=== PATIENT | male | born 1960 | race Caucasian/White ===

== ENCOUNTER 2020-01-13 11:56 | Inpatient (IN) ==
[2020-01-13 13:03] LABS: ABS Lymphocytes 1.1 10^3/ul (1.0-4.8); ABS Monocytes 0.4 10^3/ul (0-0.8); Eosinophil % 0.2 %; Hematocrit 42 % (42-52); Hemoglobin 14.5 g/dL (14.0-18.0); Lymphocyte % 18.6 %; Mean Corpuscular HGB Conc 35 g/dL (31-36); Mean Corpuscular Hemoglobin 31 pg (27-31); Mean Corpuscular Volume 90 fL (80-94); Mean Platelet Volume 7.6 fL (7.4-10.4); Nucleated Red Blood Cells % 0.1; Platelet Count 274 10^3/uL (150-450); Red Blood Count 4.65 10^6 /uL (4.18-5.48); Red Cell Distribution Width 13 % (10-15)
[2020-01-13 13:13] LABS: Activated Partial Thrombo Time 40.8 seconds (26.0-38.0); INR 1.31 (0.82-1.09)
[2020-01-13 13:22] LABS: Albumin 3.9 g/dL (3.2-5.2); Albumin/Globulin Ratio 1.5 (1-3); BUN/Creatinine Ratio 19.3 (8-20); Calcium 9.1 mg/dL (8.6-10.3); EGFR African American 107.3 (>60); EGFR Non-African American 88.6 (>60); Globulin 2.6 g/dL (2-4); Potassium 3.6 mmol/L (3.5-5.0); Total Bilirubin 0.4 mg/dL (0.2-1.0); Total Protein 6.5 g/dL (6.4-8.9)
[2020-01-13 14:44] LABS: Magnesium 1.9 mg/dL (1.9-2.7)
[2020-01-13] MEDS ORDERED: Iodixanol (CONTRAST) 320 MG/ML 100 ML SDV IV ONE (14:55)
[2020-01-13 15:01] LABS: TSH (Thyroid Stimulating Horm) 1.27 mcIU/mL (0.34-5.60)
[2020-01-13] MEDS ORDERED: NS 0.9% 1000 ml BAG 1,000 ML IV ONE ×3 (16:22→21:00)
[2020-01-13] MEDS ORDERED: Dextrose 50% Syringe 50 ml 25 GM/50 ML SYRINGE IV PUSH PRN (17:50)
[2020-01-13] MEDS ORDERED: Al Hydrox/Mg Hydrox/Simet LIQ 30 ML UDC PO ONE (17:50)
[2020-01-13 18:28] LABS: HDL Cholesterol 48.3 mg/dL
[2020-01-13] MEDS: Mometasone/Formoter 100/5 MDI INH SCH (20:15)
[2020-01-13] MEDS: Albuterol 2.5mg/3 ml (0.083%) NEB.SOLN INH SCH (20:15)
[2020-01-13] MEDS ORDERED: Budesonide Flexhaler 180 (NF) 180 MCG/ACT MDI INH SCH (21:00)
[2020-01-13] MEDS: Insulin LISPRO 100 units/ml(*) SUBCUT SCH (22:29)
[2020-01-13] MEDS: NS 0.9% 1000 ml BAG 1,000 ML IV SCH (22:43)
[2020-01-13] MEDS: Pantoprazole VIAL 40 MG VIAL IV SCH (22:49)
[2020-01-13] MEDS: Nystatin TOP POWDER 15 GM BTL TOPICAL SCH (22:54)
[2020-01-14 07:08] LABS: BUN/Creatinine Ratio 26.3 (8-20); Calcium 8.5 mg/dL (8.6-10.3); EGFR African American 119.7 (>60); EGFR Non-African American 98.9 (>60); Potassium 3.9 mmol/L (3.5-5.0)
[2020-01-14 07:16] LABS: ABS Lymphocytes 1.2 10^3/ul (1.0-4.8); ABS Monocytes 0.4 10^3/ul (0-0.8); Eosinophil % 0.3 %; Hematocrit 41 % (42-52); Hemoglobin 13.9 g/dL (14.0-18.0); Lymphocyte % 22.9 %; Mean Corpuscular HGB Conc 34 g/dL (31-36); Mean Corpuscular Hemoglobin 31 pg (27-31); Mean Corpuscular Volume 91 fL (80-94); Mean Platelet Volume 7.5 fL (7.4-10.4); Nucleated Red Blood Cells % 0.1; Platelet Count 236 10^3/uL (150-450); Red Blood Count 4.51 10^6 /uL (4.18-5.48); Red Cell Distribution Width 13 % (10-15); White Blood Count 5.4 10^3/uL (3.5-10.8)
[2020-01-14] MEDS: Aspirin EC 81 mg TAB.EC (enteric coated) PO SCH (08:09)
[2020-01-14] MEDS ORDERED: Perflutren Lipid Microsphere 3 ML VIAL ONE (08:09)
[2020-01-14] MEDS: Pantoprazole VIAL 40 MG VIAL IV SCH ×2 (08:10→20:14)
[2020-01-14] MEDS ORDERED: Regadenoson 0.4 MG/5 ML SYRINGE ONE (08:10)
[2020-01-14] MEDS ORDERED: Aminophylline 25 MG/ML VIAL ONE (08:10)
[2020-01-14] MEDS: Mirabegron 50 mg TAB (NF) 50 MG TAB PO SCH (08:29)
[2020-01-14] MEDS: Insulin LISPRO 100 units/ml(*) SUBCUT SCH ×4 (08:29→21:40)
[2020-01-14] MEDS: Mometasone/Formoter 100/5 MDI INH SCH ×2 (08:35→19:13)
[2020-01-14] MEDS: Albuterol 2.5mg/3 ml (0.083%) NEB.SOLN INH SCH ×3 (08:35→19:13)
[2020-01-14] MEDS: SPIRIVA Respimat (tiotropium) 2.5 mcg/inh Inhaler INH SCH (08:35)
[2020-01-14] MEDS ORDERED: CMCS:Pravastatin 20 mg TAB (NF) PO SCH (09:00)
[2020-01-14] MEDS: Nystatin TOP POWDER 15 GM BTL TOPICAL SCH ×2 (12:10→21:58)
[2020-01-14] MEDS: Nicotine PATCH 7 MG/24 HR PATCH TRANSDERM SCH (12:10)
[2020-01-14 12:36] LABS: Folate 10.5 ng/mL (>3.99)
[2020-01-14] MEDS ORDERED: Cyanocobalamin INJ 1,000 MCG/ML VIAL 1 ML VIAL IM ONE (13:43)
[2020-01-14] MEDS ORDERED: Thiamine 100 MG/ML 2 ml VIAL 100 MG, Folic Acid 1 MG, Multiple Vitamin IV ADULT 10 ML i... IV ONE (13:44)
[2020-01-14] MEDS ORDERED: Potassium Chloride LIQUID 20 MEQ/15 ML LIQUID PO ONE (13:45)
[2020-01-14] MEDS: Digoxin IV 0.5 MG/2 ML AMP (0.25 MG/ML) IV SLOW PU SCH ×2 (15:13→20:13)
[2020-01-14] MEDS: NS 0.9% 1000 ml BAG 1,000 ML IV SCH (21:56)
[2020-01-15] MEDS: Digoxin IV 0.5 MG/2 ML AMP (0.25 MG/ML) IV SLOW PU SCH (00:36)
[2020-01-15 06:55] LABS: BUN/Creatinine Ratio 22.7 (8-20); Calcium 8.5 mg/dL (8.6-10.3); Digoxin 1.1 ng/ml (0.8-2.0); EGFR African American 149.5 (>60); EGFR Non-African American 123.5 (>60); Magnesium 1.8 mg/dL (1.9-2.7); Potassium 4.4 mmol/L (3.5-5.0)
[2020-01-15] MEDS: SPIRIVA Respimat (tiotropium) 2.5 mcg/inh Inhaler INH SCH (07:12)
[2020-01-15] MEDS: Albuterol 2.5mg/3 ml (0.083%) NEB.SOLN INH SCH (07:12)
[2020-01-15] MEDS: Mometasone/Formoter 100/5 MDI INH SCH ×2 (07:13→19:09)
[2020-01-15] MEDS: Insulin LISPRO 100 units/ml(*) SUBCUT SCH ×4 (08:01→16:10)
[2020-01-15] MEDS ORDERED: Albuterol 2.5mg/3 ml (0.083%) NEB.SOLN INH PRN (08:27)
[2020-01-15] MEDS: Aspirin EC 81 mg TAB.EC (enteric coated) PO SCH ×2 (09:13→10:38)
[2020-01-15] MEDS: Pantoprazole VIAL 40 MG VIAL IV SCH ×2 (09:13→10:38)
[2020-01-15] MEDS: Nystatin TOP POWDER 15 GM BTL TOPICAL SCH ×2 (09:14→21:55)
[2020-01-15] MEDS: CMCS:Pravastatin 20 mg TAB (NF) PO SCH ×2 (09:14→10:39)
[2020-01-15] MEDS: Nicotine PATCH 7 MG/24 HR PATCH TRANSDERM SCH ×2 (09:15→10:39)
[2020-01-15] MEDS: Mirabegron 50 mg TAB (NF) 50 MG TAB PO SCH (09:15)
[2020-01-15] MEDS ORDERED: Magnesium Sulfate IV 1GM/100ML 1 GM/100 ML BAG IV ONE (10:34)
[2020-01-15] MEDS: NS 0.9% 1000 ml BAG 1,000 ML IV SCH (10:51)
[2020-01-15] MEDS: Albuterol/Ipratropium NEB.SOL (2.5/0.5 MG) 3 ML NEB.SOLN INH PRN (12:51)
[2020-01-15] MEDS: Polyethylene Glycol 3350 17 GM PACKET PO PRN (21:52)
[2020-01-16] MEDS: Mometasone/Formoter 100/5 MDI INH SCH ×2 (07:28→19:34)
[2020-01-16] MEDS: SPIRIVA Respimat (tiotropium) 2.5 mcg/inh Inhaler INH SCH (07:28)
[2020-01-16 07:39] LABS: Digoxin 0.7 ng/ml (0.8-2.0)
[2020-01-16] MEDS: Nicotine PATCH 7 MG/24 HR PATCH TRANSDERM SCH (08:19)
[2020-01-16] MEDS: Aspirin EC 81 mg TAB.EC (enteric coated) PO SCH (08:23)
[2020-01-16] MEDS: Nystatin TOP POWDER 15 GM BTL TOPICAL SCH ×2 (08:25→19:58)
[2020-01-16] MEDS: Mirabegron 50 mg TAB (NF) 50 MG TAB PO SCH (08:26)
[2020-01-16] MEDS: CMCS:Pravastatin 20 mg TAB (NF) PO SCH (09:38)
[2020-01-16 12:28] LABS: Calcium 8.7 mg/dL (8.6-10.3); Potassium 4.1 mmol/L (3.5-5.0)
[2020-01-16 12:33] LABS: BUN/Creatinine Ratio 18.6 (8-20); EGFR African American 170.1 (>60); EGFR Non-African American 140.6 (>60)
[2020-01-16] MEDS: Albuterol/Ipratropium NEB.SOL (2.5/0.5 MG) 3 ML NEB.SOLN INH PRN (19:34)
[2020-01-16 21:57] LABS: Urine Bacteria 1+ (Absent); Urine Red Blood Cell Trace(0-2/hpf) (Absent); Urine White Blood Cell 3+(>20/hpf) (Absent)
[2020-01-16 21:58] LABS: Urine Color Yellow
[2020-01-16 21:59] LABS: Urine Appearance Clear; Urine Blood TRACE (Negative); Urine Ketones Negative (Negative); Urine Protein Negative (Negative); Urine Urobilinogen Negative (Negative)
[2020-01-16 22:00] LABS: Urine Bilirubin Negative (Negative); Urine Glucose Negative (Negative); Urine Nitrite Negative (Negative)
[2020-01-17] MEDS: Albuterol/Ipratropium NEB.SOL (2.5/0.5 MG) 3 ML NEB.SOLN INH PRN ×2 (07:32→20:06)
[2020-01-17] MEDS: Mometasone/Formoter 100/5 MDI INH SCH ×2 (07:32→20:02)
[2020-01-17] MEDS: SPIRIVA Respimat (tiotropium) 2.5 mcg/inh Inhaler INH SCH (07:32)
[2020-01-17] MEDS: Aspirin EC 81 mg TAB.EC (enteric coated) PO SCH (08:42)
[2020-01-17] MEDS: Nicotine PATCH 7 MG/24 HR PATCH TRANSDERM SCH (08:42)
[2020-01-17] MEDS: Nystatin TOP POWDER 15 GM BTL TOPICAL SCH ×2 (08:44→19:56)
[2020-01-17] MEDS: Mirabegron 50 mg TAB (NF) 50 MG TAB PO SCH (08:44)
[2020-01-17] MEDS: CMCS:Pravastatin 20 mg TAB (NF) PO SCH (08:44)
[2020-01-17] MEDS: Al Hydrox/Mg Hydrox/Simet LIQ 30 ML UDC PO PRN (19:56)
[2020-01-17] MEDS: Carboxymethylcellulose/Glyceri 10 ML OPHTH.GEL lubricant eye gel BOTH EYES SCH (20:02)
[2020-01-18] MEDS: Mometasone/Formoter 100/5 MDI INH SCH ×2 (07:39→20:15)
[2020-01-18] MEDS: Albuterol/Ipratropium NEB.SOL (2.5/0.5 MG) 3 ML NEB.SOLN INH PRN (07:39)
[2020-01-18] MEDS: SPIRIVA Respimat (tiotropium) 2.5 mcg/inh Inhaler INH SCH (07:39)
[2020-01-18] MEDS: Aspirin EC 81 mg TAB.EC (enteric coated) PO SCH (08:49)
[2020-01-18] MEDS: CMCS:Pravastatin 20 mg TAB (NF) PO SCH (08:50)
[2020-01-18] MEDS: Nicotine PATCH 7 MG/24 HR PATCH TRANSDERM SCH (08:50)
[2020-01-18] MEDS: Mirabegron 50 mg TAB (NF) 50 MG TAB PO SCH (08:54)
[2020-01-18] MEDS: Nystatin TOP POWDER 15 GM BTL TOPICAL SCH ×2 (09:23→22:11)
[2020-01-18 13:51] LABS: Magnesium 2.1 mg/dL (1.9-2.7); Potassium 4.7 mmol/L (3.5-5.0)
[2020-01-18 13:53] LABS: ABS Monocytes 0.5 10^3/ul (0-0.8); Eosinophil % 0.4 %; Hematocrit 40 % (42-52); Lymphocyte % 16.8 %; Mean Corpuscular HGB Conc 35 g/dL (31-36); Mean Corpuscular Hemoglobin 32 pg (27-31); Mean Corpuscular Volume 90 fL (80-94); Mean Platelet Volume 7.8 fL (7.4-10.4); Platelet Count 217 10^3/uL (150-450); Red Blood Count 4.44 10^6 /uL (4.18-5.48); Red Cell Distribution Width 13 % (10-15); White Blood Count 5.8 10^3/uL (3.5-10.8)
[2020-01-18 13:57] LABS: BUN/Creatinine Ratio 22.5 (8-20); EGFR African American 137.4 (>60); EGFR Non-African American 113.6 (>60)
[2020-01-18] MEDS ORDERED: Furosemide 20 mg/2 ml IV VIAL IV SLOW PU ONE ×2 (19:30→21:00)
[2020-01-18] MEDS: Carboxymethylcellulose/Glyceri 10 ML OPHTH.GEL lubricant eye gel BOTH EYES SCH (20:30)
[2020-01-19] MEDS: Mometasone/Formoter 100/5 MDI INH SCH ×2 (07:41→19:23)
[2020-01-19] MEDS: SPIRIVA Respimat (tiotropium) 2.5 mcg/inh Inhaler INH SCH (07:41)
[2020-01-19] MEDS: Aspirin EC 81 mg TAB.EC (enteric coated) PO SCH (09:03)
[2020-01-19] MEDS: CMCS:Pravastatin 20 mg TAB (NF) PO SCH (09:04)
[2020-01-19] MEDS: Mirabegron 50 mg TAB (NF) 50 MG TAB PO SCH (09:05)
[2020-01-19] MEDS: Nicotine PATCH 7 MG/24 HR PATCH TRANSDERM SCH (09:43)
[2020-01-19] MEDS: Nystatin TOP POWDER 15 GM BTL TOPICAL SCH ×2 (09:44→20:48)
[2020-01-19] MEDS: Carboxymethylcellulose/Glyceri 10 ML OPHTH.GEL lubricant eye gel BOTH EYES SCH (20:42)
[2020-01-20 07:15] LABS: CO2 Carbon Dioxide 23 mmol/L (22-32); Calcium 8.8 mg/dL (8.6-10.3); Chloride 107 mmol/L (101-111); Sodium 137 mmol/L (135-145)
[2020-01-20 07:20] LABS: BUN/Creatinine Ratio 20.3 (8-20); Blood Urea Nitrogen 14 mg/dL (6-24); EGFR Non-African American 117.4 (>60); Glucose 89 mg/dL (70-100)
[2020-01-20 07:32] LABS: Anion Gap 7 mmol/L (2-11)
[2020-01-20] MEDS: Mometasone/Formoter 100/5 MDI INH SCH ×2 (07:53→20:03)
[2020-01-20] MEDS: SPIRIVA Respimat (tiotropium) 2.5 mcg/inh Inhaler INH SCH (07:55)
[2020-01-20] MEDS: Aspirin EC 81 mg TAB.EC (enteric coated) PO SCH (09:07)
[2020-01-20] MEDS: CMCS:Pravastatin 20 mg TAB (NF) PO SCH (09:07)
[2020-01-20] MEDS: Mirabegron 50 mg TAB (NF) 50 MG TAB PO SCH (09:15)
[2020-01-20] MEDS: Nicotine PATCH 7 MG/24 HR PATCH TRANSDERM SCH (09:16)
[2020-01-20] MEDS: Nystatin TOP POWDER 15 GM BTL TOPICAL SCH ×2 (11:13→20:46)
[2020-01-20] MEDS: Albuterol/Ipratropium NEB.SOL (2.5/0.5 MG) 3 ML NEB.SOLN INH PRN ×2 (13:30→20:04)
[2020-01-20] MEDS ORDERED: Furosemide 20 mg/2 ml IV VIAL IV SLOW PU ONE (13:56)
[2020-01-20] MEDS ORDERED: LORazepam 2 mg VIAL 1 ml IV PUSH ONE (15:47)
[2020-01-20] MEDS ORDERED: Lorazepam PYXIS KEY PRN (15:47)
[2020-01-20] MEDS: Carboxymethylcellulose/Glyceri 10 ML OPHTH.GEL lubricant eye gel BOTH EYES SCH (20:43)
[2020-01-20] MEDS ORDERED: Iodixanol (CONTRAST) 320 MG/ML 100 ML SDV IV ONE (21:06)
[2020-01-21 06:18] LABS: BUN/Creatinine Ratio 17.4 (8-20); Calcium 8.8 mg/dL (8.6-10.3); EGFR Non-African American 117.4 (>60); Magnesium 1.9 mg/dL (1.9-2.7); Potassium 3.9 mmol/L (3.5-5.0)
[2020-01-21] MEDS: Mometasone/Formoter 100/5 MDI INH SCH ×2 (07:06→20:00)
[2020-01-21] MEDS: SPIRIVA Respimat (tiotropium) 2.5 mcg/inh Inhaler INH SCH (07:08)
[2020-01-21] MEDS: Aspirin EC 81 mg TAB.EC (enteric coated) PO SCH (08:42)
[2020-01-21] MEDS: Nicotine PATCH 7 MG/24 HR PATCH TRANSDERM SCH (08:43)
[2020-01-21] MEDS: Nystatin TOP POWDER 15 GM BTL TOPICAL SCH ×2 (08:44→22:04)
[2020-01-21] MEDS: CMCS:Pravastatin 20 mg TAB (NF) PO SCH (08:45)
[2020-01-21] MEDS: Mirabegron 50 mg TAB (NF) 50 MG TAB PO SCH (09:54)
[2020-01-21] MEDS ORDERED: Topiramate 25 mg TAB (*) PO ONE (10:05)
[2020-01-21] MEDS: LORazepam 0.5 mg TAB (*) PO PRN (14:35)
[2020-01-21] MEDS: Carboxymethylcellulose/Glyceri 10 ML OPHTH.GEL lubricant eye gel BOTH EYES SCH (22:04)
[2020-01-22] MEDS: SPIRIVA Respimat (tiotropium) 2.5 mcg/inh Inhaler INH SCH (07:52)
[2020-01-22] MEDS: Mometasone/Formoter 100/5 MDI INH SCH ×2 (07:52→20:16)
[2020-01-22] MEDS: Aspirin EC 81 mg TAB.EC (enteric coated) PO SCH (08:26)
[2020-01-22] MEDS: CMCS:Pravastatin 20 mg TAB (NF) PO SCH (08:28)
[2020-01-22] MEDS: Mirabegron 50 mg TAB (NF) 50 MG TAB PO SCH (08:32)
[2020-01-22] MEDS: Nicotine PATCH 7 MG/24 HR PATCH TRANSDERM SCH (08:33)
[2020-01-22] MEDS: LORazepam 0.5 mg TAB (*) PO PRN (13:26)
[2020-01-22] MEDS: Nystatin TOP POWDER 15 GM BTL TOPICAL SCH ×2 (13:30→21:55)
[2020-01-22] MEDS: Carboxymethylcellulose/Glyceri 10 ML OPHTH.GEL lubricant eye gel BOTH EYES SCH (21:56)
[2020-01-23] MEDS: Aspirin EC 81 mg TAB.EC (enteric coated) PO SCH (07:34)
[2020-01-23] MEDS: CMCS:Pravastatin 20 mg TAB (NF) PO SCH (07:35)
[2020-01-23] MEDS: Nicotine PATCH 7 MG/24 HR PATCH TRANSDERM SCH (07:35)
[2020-01-23] MEDS: Mirabegron 50 mg TAB (NF) 50 MG TAB PO SCH (07:36)
[2020-01-23] MEDS: SPIRIVA Respimat (tiotropium) 2.5 mcg/inh Inhaler INH SCH (08:29)
[2020-01-23] MEDS: Mometasone/Formoter 100/5 MDI INH SCH ×2 (08:29→20:10)
[2020-01-23] MEDS: Polyethylene Glycol 3350 17 GM PACKET PO PRN (10:47)
[2020-01-23] MEDS: LORazepam 0.5 mg TAB (*) PO PRN ×2 (10:48→19:37)
[2020-01-23] MEDS: Nystatin TOP POWDER 15 GM BTL TOPICAL SCH ×2 (10:52→19:41)
[2020-01-23] MEDS: Carboxymethylcellulose/Glyceri 10 ML OPHTH.GEL lubricant eye gel BOTH EYES SCH (19:38)
[2020-01-24] MEDS ORDERED: Clindamycin 900 MG/D5W BAG(*) 900 MG/50 ML BAG IVPB ONE (07:00)
[2020-01-24 07:22] LABS: ABS Lymphocytes 0.8 10^3/ul (1.0-4.8); ABS Monocytes 0.5 10^3/ul (0-0.8); Eosinophil % 0.5 %; Hematocrit 39 % (42-52); Hemoglobin 13.3 g/dL (14.0-18.0); Lymphocyte % 18.5 %; Mean Corpuscular HGB Conc 34 g/dL (31-36); Mean Corpuscular Hemoglobin 31 pg (27-31); Mean Corpuscular Volume 91 fL (80-94); Mean Platelet Volume 7.7 fL (7.4-10.4); Nucleated Red Blood Cells % 0.1; Platelet Count 237 10^3/uL (150-450); Red Cell Distribution Width 13 % (10-15); White Blood Count 4.6 10^3/uL (3.5-10.8)
[2020-01-24] MEDS: Mirabegron 50 mg TAB (NF) 50 MG TAB PO SCH (07:37)
[2020-01-24] MEDS: Aspirin EC 81 mg TAB.EC (enteric coated) PO SCH (07:37)
[2020-01-24 07:39] LABS: BUN/Creatinine Ratio 13.6 (8-20); Calcium 8.8 mg/dL (8.6-10.3); EGFR African American 149.5 (>60); EGFR Non-African American 123.5 (>60); Potassium 4.2 mmol/L (3.5-5.0)
[2020-01-24] MEDS: CMCS:Pravastatin 20 mg TAB (NF) PO SCH (07:39)
[2020-01-24] MEDS: Nicotine PATCH 7 MG/24 HR PATCH TRANSDERM SCH (07:41)
[2020-01-24] MEDS: Nystatin TOP POWDER 15 GM BTL TOPICAL SCH ×2 (07:42→21:08)
[2020-01-24] MEDS: SPIRIVA Respimat (tiotropium) 2.5 mcg/inh Inhaler INH SCH (07:52)
[2020-01-24] MEDS: Mometasone/Formoter 100/5 MDI INH SCH ×2 (07:52→19:45)
[2020-01-24] MEDS ORDERED: Diazepam 5 mg TAB (*) PO ONE (08:00)
[2020-01-24] MEDS: NS 0.9% 1000 ml BAG 1,000 ML IV SCH ×2 (08:16→19:54)
[2020-01-24] MEDS ORDERED: Midazolam 5 mg/5 ml VIAL 1 mg/ml 5 ml VIAL (5 mg) ONE (14:05)
[2020-01-24] MEDS ORDERED: fentaNYL 250 mcg/5 ml 50 MCG/ML 5 ml VIAL (250 MCG) ONE (14:05)
[2020-01-24] MEDS ORDERED: fentaNYL 100 mcg/2 ml 50 MCG/ML VIAL ONE (14:06)
[2020-01-24] MEDS ORDERED: Lidocaine 1% VIAL 10 MG/ML VIAL ONE (14:06)
[2020-01-24] MEDS ORDERED: Atropine 0.1 MG/ML 10 ml SYR (1 mg) ONE (14:36)
[2020-01-24] MEDS ORDERED: oxyCODONE/Acetamin 5/325 mg TAB PO PRN (15:04)
[2020-01-24] MEDS: Carboxymethylcellulose/Glyceri 10 ML OPHTH.GEL lubricant eye gel BOTH EYES SCH (21:01)
[2020-01-25] MEDS: NS 0.9% 1000 ml BAG 1,000 ML IV SCH (06:16)
[2020-01-25 06:28] LABS: ABS Lymphocytes 0.9 10^3/ul (1.0-4.8); ABS Monocytes 0.6 10^3/ul (0-0.8); Eosinophil % 0.5 %; Hematocrit 37 % (42-52); Hemoglobin 12.9 g/dL (14.0-18.0); Lymphocyte % 16.9 %; Mean Corpuscular HGB Conc 35 g/dL (31-36); Mean Corpuscular Hemoglobin 31 pg (27-31); Mean Corpuscular Volume 90 fL (80-94); Mean Platelet Volume 7.3 fL (7.4-10.4); Nucleated Red Blood Cells % 0.1; Platelet Count 230 10^3/uL (150-450); Red Blood Count 4.14 10^6 /uL (4.18-5.48); Red Cell Distribution Width 13 % (10-15); White Blood Count 5.2 10^3/uL (3.5-10.8)
[2020-01-25 06:43] LABS: BUN/Creatinine Ratio 17.5 (8-20); Calcium 8.5 mg/dL (8.6-10.3); EGFR Non-African American 146.3 (>60)
[2020-01-25] MEDS: SPIRIVA Respimat (tiotropium) 2.5 mcg/inh Inhaler INH SCH (09:01)
[2020-01-25] MEDS: Mometasone/Formoter 100/5 MDI INH SCH ×2 (09:01→20:21)
[2020-01-25] MEDS: LORazepam 0.5 mg TAB (*) PO PRN (09:30)
[2020-01-25] MEDS: Aspirin EC 81 mg TAB.EC (enteric coated) PO SCH (09:30)
[2020-01-25] MEDS: Nicotine PATCH 7 MG/24 HR PATCH TRANSDERM SCH (09:32)
[2020-01-25] MEDS: Nystatin TOP POWDER 15 GM BTL TOPICAL SCH ×2 (09:35→21:10)
[2020-01-25] MEDS: Mirabegron 50 mg TAB (NF) 50 MG TAB PO SCH (09:39)
[2020-01-25 10:34] LABS: Troponin I 0.01 ng/mL (<0.03)
[2020-01-25] MEDS: CMCS:Pravastatin 20 mg TAB (NF) PO SCH (14:06)
[2020-01-25] MEDS: Carboxymethylcellulose/Glyceri 10 ML OPHTH.GEL lubricant eye gel BOTH EYES SCH (21:09)
[2020-01-26 06:46] LABS: ABS Monocytes 0.5 10^3/ul (0-0.8); Eosinophil % 0.5 %; Hematocrit 39 % (42-52); Hemoglobin 13.2 g/dL (14.0-18.0); Lymphocyte % 19.4 %; Mean Corpuscular HGB Conc 34 g/dL (31-36); Mean Corpuscular Hemoglobin 31 pg (27-31); Mean Corpuscular Volume 90 fL (80-94); Mean Platelet Volume 7.6 fL (7.4-10.4); Nucleated Red Blood Cells % 0.1; Platelet Count 235 10^3/uL (150-450); Red Blood Count 4.29 10^6 /uL (4.18-5.48); Red Cell Distribution Width 12 % (10-15)
[2020-01-26 06:55] LABS: BUN/Creatinine Ratio 15.3 (8-20); Calcium 8.7 mg/dL (8.6-10.3); EGFR African American 170.1 (>60); EGFR Non-African American 140.6 (>60)
[2020-01-26] MEDS: SPIRIVA Respimat (tiotropium) 2.5 mcg/inh Inhaler INH SCH (07:57)
[2020-01-26] MEDS: Mometasone/Formoter 100/5 MDI INH SCH ×2 (07:58→21:11)
[2020-01-26] MEDS: Aspirin EC 81 mg TAB.EC (enteric coated) PO SCH (08:09)
[2020-01-26] MEDS: Nystatin TOP POWDER 15 GM BTL TOPICAL SCH ×2 (08:10→21:21)
[2020-01-26] MEDS: Nicotine PATCH 7 MG/24 HR PATCH TRANSDERM SCH (08:13)
[2020-01-26] MEDS: Mirabegron 50 mg TAB (NF) 50 MG TAB PO SCH (08:13)
[2020-01-26] MEDS: CMCS:Pravastatin 20 mg TAB (NF) PO SCH ×2 (08:13→08:51)
[2020-01-26] MEDS: Polyethylene Glycol 3350 17 GM PACKET PO PRN ×2 (08:50→09:06)
[2020-01-26] MEDS: LORazepam 0.5 mg TAB (*) PO PRN (09:05)
[2020-01-26] MEDS: Carboxymethylcellulose/Glyceri 10 ML OPHTH.GEL lubricant eye gel BOTH EYES SCH (21:12)
[2020-01-27] MEDS: Al Hydrox/Mg Hydrox/Simet LIQ 30 ML UDC PO PRN (06:03)
[2020-01-27] MEDS: SPIRIVA Respimat (tiotropium) 2.5 mcg/inh Inhaler INH SCH (08:40)
[2020-01-27] MEDS: Mometasone/Formoter 100/5 MDI INH SCH ×2 (08:40→19:22)
[2020-01-27] MEDS: Aspirin EC 81 mg TAB.EC (enteric coated) PO SCH (09:43)
[2020-01-27] MEDS: Nystatin TOP POWDER 15 GM BTL TOPICAL SCH ×3 (09:44→21:11)
[2020-01-27] MEDS: Nicotine PATCH 7 MG/24 HR PATCH TRANSDERM SCH (09:44)
[2020-01-27] MEDS: CMCS:Pravastatin 20 mg TAB (NF) PO SCH (09:44)
[2020-01-27] MEDS: LORazepam 0.5 mg TAB (*) PO PRN (09:51)
[2020-01-27] MEDS: Mirabegron 50 mg TAB (NF) 50 MG TAB PO SCH (09:51)
[2020-01-27] MEDS: Carboxymethylcellulose/Glyceri 10 ML OPHTH.GEL lubricant eye gel BOTH EYES SCH (21:11)
[2020-01-28] MEDS ORDERED: LORazepam 0.5 mg TAB (*) PO ONE (06:21)
[2020-01-28] MEDS: Albuterol/Ipratropium NEB.SOL (2.5/0.5 MG) 3 ML NEB.SOLN INH PRN (06:32)
[2020-01-28] MEDS: Aspirin EC 81 mg TAB.EC (enteric coated) PO SCH (07:37)
[2020-01-28] MEDS: Nicotine PATCH 7 MG/24 HR PATCH TRANSDERM SCH (07:38)
[2020-01-28] MEDS: CMCS:Pravastatin 20 mg TAB (NF) PO SCH (07:40)
[2020-01-28] MEDS: Mirabegron 50 mg TAB (NF) 50 MG TAB PO SCH (07:41)
[2020-01-28] MEDS: Nystatin TOP POWDER 15 GM BTL TOPICAL SCH (07:41)
[2020-01-28] MEDS: Mometasone/Formoter 100/5 MDI INH SCH (08:27)
[2020-01-28] MEDS: SPIRIVA Respimat (tiotropium) 2.5 mcg/inh Inhaler INH SCH (08:30)
[2020-01-28 11:10] VITALS: BP 103/49
== END 2020-01-28 12:45 | disposition home or self-care (01) | DRG 243 ==
LOC: MEDTELE 11:56 → ED 11:56 → MEDTELE 19:48
PROVIDERS: ADMIT Internal Medicine; ATTEND Internal Medicine